=== PATIENT | male | born 1955 | race American Indian/Alaskan Native ===

== ENCOUNTER 2019-01-22 19:03 | Emergency (ER) | payer MEDICARE, OTHER, MEDICAID ==
[2019-01-22] MEDS ORDERED: TETANUS,DIPH,PERTUSS(ACELL) VACCINE 0.5 ML SYRINGE IM ONE (19:27)
--- NOTE | 2019-01-22 19:28 | Event Note ---
ED Screening Note Date of service: 01/22/19 Time: 19:23 ED Screening Note: This is a 63 y.o. M. that presents to the ER with puncture wounds to left hand. Patient states a dog bite to left hand while walking his dog. Patient states 4 his neighbor dogs attached his dog while walking and bit him and his brother. He can't remember last tetanus. This initial assessment/diagnostic orders/clinical plan/treatment(s) is/are subject to change based on patients health status, clinical progression and re- assessment by fellow clinical providers in the ED. Further treatment and workup at subsequent clinical providers discretion. Patient/guardian urged not to elope from the ED as their condition may be serious if not clinically assessed and managed. Initial orders include: Boostrix XR left hand
--- NOTE | 2019-01-22 20:19 | XRay Report ---
LEFT HAND 3 VIEWS INDICATION: puncture wound r/o fx. COMPARISON: No relevant prior imaging study available. FINDINGS: There is soft tissue injury at the base of the little finger. No acute fracture or dislocation is see n. No foreign bodies. Dorsal subcutaneous edema is extensive. IMPRESSION: 1. No acute fracture. 2. There is extensive dorsal subcutaneous edema. Signer Name: Jesse Ortega MD Signed: 01/22/2019 8:15 PM Workstation Name: [id number]
[2019-01-22] MEDS ORDERED: AMOXICILLIN/K CLAV 875/125MG TAB PO ONE (20:35)
[2019-01-22] MEDS ORDERED: HYDROcodone/ACETAMINOPHEN 5-325 MG TAB PO ONE ×2 (20:35→21:05)
--- NOTE | 2019-01-22 20:44 | Emergency Department Report ---
ED Animal Bite HPI - General Chief Complaint: Animal Bite Stated Complaint: LFT HAND DOG BITE/PAIN Time Seen by Provider: 01/22/19 19:23 Source: patient Mode of arrival: Ambulatory Limitations: No Limitations - History of Present Illness Initial Comments: Mr. Raygoza is a 63 y.o. M. that presents to the ER with puncture wounds to left hand. Patient states a dog bite to left hand while walking his dog. Patient states 4 of his neighbor dogs attached his dog while walking and bit him and his brother. Animal control did respond. rabies status unkown for dogs, animal control to follow up with patient, pt complains of 7/10 pain left hand, described as aching. There is no numbness , bleeding is controlled to puncture wounds x 2 to dorsal left hand. There is moderate posterior swelling. Pt can't remember last tetanus. Complaint: animal bite Onset/Timin -: hour(s) Left: Hand Animal Control Notified: Yes Description: household pet Mechanism: bite Pain Description: sharp Severity scale (0 -10): 7 Context: animals fighting Associated Symptoms: bleeding, other (swelling ) Treatments Prior to Arrival: wound dressing(s), pressure - Related Data Patient Tetanus UTD: No Previous Rx's Medication Instructions Recorded Last Taken Type Amoxicillin/Potassium Clav 1 each PO BID 10 Days #20 tablet 01/22/19 Unknown Rx [Augmentin 875-125 Tablet] traMADol [Ultram] 50 mg PO Q6HR PRN #12 tablet 01/22/19 Unknown Rx ED Review of Systems ROS: Stated complaint: LFT HAND DOG BITE/PAIN Other details as noted in HPI Constitutional: denies: chills, fever Eyes: denies: eye pain, eye discharge, vision change ENT: denies: ear pain, throat pain Respiratory: denies: cough, shortness of breath, wheezing Cardiovascular: denies: chest pain, palpitations Endocrine: no symptoms reported Gastrointestinal: denies: abdominal pain, nausea, diarrhea Genitourinary: denies: urgency, dysuria Musculoskeletal: other (puncture wound left dorsal hand ) Skin: other (puncture wound as above ). denies: rash, lesions Neurological: denies: headache, weakness, paresthesias Psychiatric: denies: anxiety, depression Hematological/Lymphatic: denies: easy bleeding, easy bruising ED Past Medical Hx - Past Medical History Previous Medical History?: No - Surgical History Past Surgical History?: No Additional Surgical History: tonsilectomy - Social History Smoking Status: Unknown if ever smoked Substance Use Type: Alcohol - Medications Home Medications: Home Medications Medication Instructions Recorded Confirmed Last Taken Type Amoxicillin/Potassium Clav 1 each PO BID 10 Days #20 tablet 01/22/19 Unknown Rx [Augmentin 875-125 Tablet] traMADol [Ultram] 50 mg PO Q6HR PRN #12 tablet 01/22/19 Unknown Rx ED Physical Exam - General Limitations: No Limitations General appearance: alert, in no apparent distress - Head Head exam: Present: atraumatic, normocephalic - Eye Eye exam: Present: normal appearance Pupils: Present: normal accommodation - ENT ENT exam: Present: mucous membranes moist - Neck Neck exam: Present: normal inspection, full ROM - Respiratory Respiratory exam: Present: normal lung sounds bilaterally. Absent: respiratory distress - Cardiovascular Cardiovascular Exam: Present: regular rate, normal rhythm, normal heart sounds. Absent: systolic murmur, diastolic murmur, rubs, gallop - GI/Abdominal GI/Abdominal exam: Present: soft, normal bowel sounds - Rectal Rectal exam: Present: deferred - Extremities Exam Extremities exam: Present: normal inspection, full ROM, tenderness (left dorsal hand ), normal capillary refill - Expanded Upper Extremity Exam Left Hand Wrist exam: Present: full ROM, tenderness, swelling, other (puncture wound x 2 ). Absent: abrasion, laceration, ecchymosis, deformity, crepidus, dislocation, erythema, amputation, nail avulsion, subungual hematoma Hand L/R Back: 1 - puncture wounds x 2 no bleeding moderate swelling Neuro motor exam: Present: wrist extension intact, thumb opposition intact, thumb IP flexion intact, thumb adduction intact, fingers 2-5 abduction intact Neurosensory exam: Present: radial nerve intact, ulnar nerve intact, median ne rve intact Vascular: Present: normal capillary refill, radial pulse - Back Exam Back exam: Present: normal inspection, full ROM. Absent: tenderness - Neurological Exam Neurological exam: Present: alert, oriented X3 - Psychiatric Psychiatric exam: Present: normal affect, normal mood ED Course Vital Signs 01/22/19 01/22/19 19:18 19:35 Temperature 97.9 F Pulse Rate 78 70 Respiratory 18 Rate Blood Pressure 159/103 Blood Pressure 146/91 [Right] O2 Sat by Pulse 92 Oximetry - Reevaluation(s) Reevaluation #1: Findings [facility] [address] [place] [address] XRay Report Signed Patient: GOGO RAYGOZA MR#: [id number] : 1955 Acct:[id number] Age/Sex: 63 / M ADM Date: 01/22/19 Loc: ED Attending Dr: Ordering Physician: BUBBA HUNTER Date of Service: 01/22/19 Procedure(s): XR hand 3+V LT Accession Number(s): [id number] cc: BUBBA HUNTER Fluoro Time In Minutes: LEFT HAND 3 VIEWS INDICATION: puncture wound r/o fx. COMPARISON: No relevant prior imaging study available. FINDINGS: There is soft tissue injury at the base of the little finger. No acute fracture or dislocation is seen. No foreign bodies. Dorsal subcutaneous edema is extensive. IMPRESSION: 1. No acute fracture. 2. There is extensive dorsal subcutaneous edema. Signer Name: Jesse Ortega MD Signed: 01/22/2019 8:15 PM Workstation Name: [id number] Transcribed By: Dictated By: Jesse Ortega MD Electronically Authenticated By: Jesse Ortega MD Signed Date/Time: 01/22/192014 DD/ 13 TD/TT: 01/22/19 20:51 Wond care: washed with copious soap and water at sink in room, cleaned with betadine solution, pt will recieve rabies immunoglobulin, and immunization,and tetanus , Augmentin, Pain control. Will follow up with health department and pcp with in 2-3 days for wound check, will return to ed if symptoms worsen. Reevaluation #2: wounds injected with rabies immunoglobulin patient received rabies vaccine and tetanus. Sterile dressing applied, patient given wound care instructions including rabies series, will follow up with pcp in 2 and or health department for series completion, distal pulses remain +2, machine puller < 3 sec, rom intact, pt will dc'd to home in stable conditions at this time. 01/22/19 21:42 Critical care attestation.: If time is entered above; I have spent that time in minutes in the direct care of this critically ill patient, excluding procedure time. ED Disposition Clinical Impression: Dog bite, hand Qualifiers: Encounter type: initial encounter Laterality: left Qualified Code(s): S61.452A - Open bite of left hand, initial encounter; W54.0XXA - Bitten by dog, initial encounter Disposition: TO HOME OR SELFCARE Is pt being admited?: No Does the pt Need Aspirin: No Condition: Stable Instructions: Animal Bite (ED), Rabies Vaccine (Injection), Rabies Immune Globulin (Injection) Additional Instructions: follow up in 2 days with pcp or health department for wound check and completion of rabies vaccinations, return to ed if symptoms worsen. Wound care as directed , soap and water, change dressing. Prescriptions: Amoxicillin/Potassium Clav [Augmentin 875-125 Tablet] 1 each PO BID 10 Days #20 tablet traMADol [Ultram] 50 mg PO Q6HR PRN #12 tablet PRN Reason: Pain [facility]errals: [facility] [Other] - 3-5 Days Forms: Work/School Release Form(ED) Time of Disposition: 21:48
[2019-01-22] MEDS ORDERED: RABIES IMMUNE GLOBULIN P/F 300 UNIT/ML INJ 5 ML IM ONE (21:00)
[2019-01-22] MEDS ORDERED: RABIES VACCINE (PCEC)/PF 2.5 UNIT/ML KIT IM ONE (21:00)
[2019-01-22 22:02] VITALS: BP 142/89
== END 2019-01-22 22:03 | disposition home or self-care (01) ==
LOC: ED 19:03
DX: S61.432A Puncture wound without foreign body of left hand, initial encounter (principal); Z90.89 Acquired absence of other organs; Z79.899 Other long term (current) drug therapy; W54.0XXA Bitten by dog, initial encounter; Y93.89 Activity, other specified; Y92.89 Other specified places as the place of occurrence of the external cause; Y99.8 Other external cause status
CPT/HCPCS: 90375; 90471; 90472; 90675; 90715; 96372

== ENCOUNTER 2019-01-25 13:07 | Emergency (ER) | payer MEDICARE ==
[2019-01-25 14:27] VITALS: BP 127/90
--- NOTE | 2019-01-25 14:30 | Event Note ---
ED Screening Note ED Screening Note: This initial assessment/diagnostic orders/clinical plan/treatment(s) is/are subject to change based on patients health status, clinical progression and re- assessment by fellow clinical providers in the ED. Further treatment and workup at subsequent clinical providers discretion. Patient/guardian urged not to elope from the ED as their condition may be serious if not clinically assessed and managed. Initial orders include: 63 yo BM states that he was bitten by a dog 4 days ago on his L hand. He states that he was seen after given a tetanus and rabies shot. He states that he is here today for the second rabies shot in the series. <CORRY BILL - Last Filed: 01/25/19 14:29> ED Screening Note: This initial assessment/diagnostic orders/clinical plan/treatment(s) is/are subject to change based on patients health status, clinical progression and re-assessment by fellow clinical providers in the ED. Further treatment and workup at subsequent clinical providers discretion. Patient/guardian urged not to elope from the ED as their condition may be serious if not clinically assessed and managed. Initial orders include: This patient presents for the second rabies vaccinations. we are unable to provide this vaccination and also subsequent vaccinations need to go through the health department. A screening examination has been completed and the patient does not appear to have any emergent medical condition at this time and can follow up outpatient. Vital signs stable. <CISCO WHEATLEY - Last Filed: 01/25/19 15:38>
[2019-01-25] MEDS ORDERED: RABAVERT RABIES VACCINE(PCEC) IM ONE (15:30)
== END 2019-01-25 15:48 | disposition home or self-care (01) ==
LOC: ED 13:07
DX: R51 Headache (principal); Z53.21 Procedure and treatment not carried out due to patient leaving prior to being seen by health care provider
CPT/HCPCS: 90675

== ENCOUNTER 2019-01-26 07:18 | Emergency (ER) | payer MEDICARE ==
[2019-01-26 07:26] VITALS: BP 113/74
[2019-01-26] MEDS ORDERED: TORADOL IM ONE (07:52)
[2019-01-26] MEDS ORDERED: DELTASONE PO ONE (07:52)
--- NOTE | 2019-01-26 08:00 | XRay Report ---
RIGHT KNEE, 3 VIEWS 01/26/2019 INDICATION / CLINICAL INFORMATION: trauma, pain, swelling. COMPARISON: None available. FINDINGS: No skeletal abnormality. A large joint effusion is identified. Signer Name: Rohan Timmons MD Signed: 01/26/2019 7:56 AM Workstation Name: [id number]
--- NOTE | 2019-01-26 08:06 | Emergency Department Report ---
ED Extremity Problem HPI - General Chief complaint: Extremity Injury, Lower Stated complaint: DOG BITE Time Seen by Provider: 01/26/19 07:45 Source: patient Mode of arrival: Ambulatory Limitations: No Limitations - History of Present Illness Initial comments: This 63-year-old male returns to the ED after being evaluated for dog bite yesterday presents with sudden onset of right knee swelling and pain this morning. Patient denies any fall or trauma in the past 2 days but states that while he was being attacked by the dog 4 days ago he may have hit in the without knowing. He denies any history of gout, fever. MD Complaint: extremity pain (right knee), extremity swelling -: Sudden Location: right, knee History of Same: No -: Yes arthralgia Radiation: none Severity scale (0 -10): 6 Quality: aching Improves with: immobilization Worsens with: weight bearing Associated Symptoms: denies other symptoms - Related Data Previous Rx's Medication Instructions Recorded Last Taken Type Amoxicillin/Potassium Clav 1 each PO BID 10 Days #20 tablet 01/22/19 Unknown Rx [Augmentin 875-125 Tablet] traMADol [Ultram] 50 mg PO Q6HR PRN #12 tablet 01/22/19 Unknown Rx Colchicine 0.6 mg PO DAILY #10 capsule 01/26/[address]] 75 mg PO BID #30 tablet 01/26/19 Unknown Rx predniSONE [Deltasone] 20 mg PO QDAY #6 tab 01/26/19 Unknown Rx Allergies Allergy/AdvReac Type Severity Reaction Status Date / Time No Known Allergies Allergy Verified 01/25/19 14:26 ED Review of Systems ROS: Stated complaint: DOG BITE Other details as noted in HPI Comment: All other systems reviewed and negative ED Past Medical Hx - Past Medical History Previous Medical History?: No - Surgical History Past Surgical History?: Yes Additional Surgical History: tonsilectomy - Social History Smoking Status: Never Smoker Substance Use Type: None - Medications Home Medications: Home Medications Medication Instructions Recorded Confirmed Last Taken Type Amoxicillin/Potassium Clav 1 each PO BID 10 Days #20 tablet 01/22/19 Unknown Rx [Augmentin 875-125 Tablet] traMADol [Ultram] 50 mg PO Q6HR PRN #12 tablet 01/22/19 Unknown Rx Colchicine 0.6 mg PO DAILY #10 capsule 01/26/19 Unknown Rx Diclofenac [Mookie Jackson] 75 mg PO BID #30 tablet 01/26/19 Unknown Rx predniSONE [Deltasone] 20 mg PO QDAY #6 tab 01/26/19 Unknown Rx ED Physical Exam - General Limitations: No Limitations General appearance: alert, in no apparent distress - Head Head exam: Present: atraumatic, normocephalic - Eye Eye exam: Present: normal appearance - ENT ENT exam: Present: mucous membranes moist - Neck Neck exam: Present: normal inspection - Respiratory Respiratory exam: Present: normal lung sounds bilaterally. Absent: respiratory distress - Cardiovascular Cardiovascular Exam: Present: regular rate, normal rhythm. Absent: systolic murmur, diastolic murmur, rubs, gallop - GI/Abdominal GI/Abdominal exam: Present: soft, normal bowel sounds - Rectal Rectal exam: Present: deferred - Extremities Exam Extremities exam: Present: normal inspection, full ROM, tenderness (palpation of the knee anteriorly), joint swelling (moderate swelling of the right knee anterior aspect.), other (the right knee is mildly warm to touch, pain with flexion and extension). Absent: calf tenderness - Expanded Lower Extremity Exam Right Hip exam: Present: full ROM Upper Leg exam: Present: full ROM Knee exam: Present: tenderness, swelling. Absent: abrasion, laceration, deformity, dislocation, erythema Lower Leg exam: Present: full ROM. Absent: tenderness, swelling Ankle exam: Present: full ROM. Absent: tenderness, swelling Foot/Toe exam: Present: normal inspection, full ROM. Absent: tenderness, swelling, abrasion - Back Exam Back exam: Present: normal inspection - Neurological Exam Neurological exam: Present: alert, oriented X3, normal gait (with a limp when applied pressure to the right) - Psychiatric Psychiatric exam: Present: normal affect, normal mood - Skin Skin exam: Present: warm, dry, intact, normal color. Absent: rash ED Course Vital Signs 01/26/19 07:21 Temperature 97.3 F L Pulse Rate 61 Respiratory 16 Rate Blood Pressure 113/74 O2 Sat by Pulse 100 Oximetry ED Medical Decision Making - Radiology Data Radiology results: report reviewed, image reviewed RIGHT KNEE, 3 VIEWS 01/26/2019 INDICATION / CLINICAL INFORMATION: trauma, pain, swelling. COMPARISON: None available. FINDINGS: No skeletal abnormality. A large joint effusion is identified. Signer Name: Rohan Timmons MD Signed: 01/26/2019 7:56 AM Workstation Name: [id number] Transcribed By: SLIME Dictated By: Rohan Timmons MD Electronically Authenticated By: Rohan Timmons MD Signed Date/Time: 01/26/19 0756 - Medical Decision Making 63-year-old male presents to ED with right knee joint effusion and pain ED course: Patient received Toradol and prednisone in ED. Stress of the knee obtained. X-ray shows, see reported above Discussed x-ray findings with the patient and discussed the patient is swelling does not go down in the knee joint to follow-up with orthopedic Dr. Gomez in 2- 3 days. Discussed the patient to apply heat versus ice compressions to me to reduce swelling Vital signs are normal patient is in no acute distress Discussed with patient follow-up with primary care physician. Discussed the patient and take medications as prescribed. Patient has no neurological deficit. Patient is alert and oriented 3 and understands all instructions given. - Differential Diagnosis arthralgia, gouty arthritis, knee joint effusion, tendinitis Critical care attestation.: If time is entered above; I have spent that time in minutes in the direct care of this critically ill patient, excluding procedure time. ED Disposition Clinical Impression: Knee pain, right, Knee effusion, right Disposition: DC-01 TO HOME OR SELFCARE Is pt being admited?: No Does the pt Need Aspirin: No Condition: Stable Instructions: Knee Effusion (ED), Knee Pain (ED), Knee Exercises (GEN) Additional Instructions: Make sure to follow up with the primary care physician as discussed. Take all your medications as you've been prescribed. If you have any worsening symptoms or develop new symptoms please return to ED immediately. Prescriptions: Colchicine 0.6 mg PO DAILY #10 capsule predniSONE [Deltasone] 20 mg PO QDAY #[address] [Voltaren ] 75 mg PO BID #30 tablet Referrals: PRIMARY CAREMD [Primary Care Provider] - 3-5 Days LOREN GOMEZ MD [Staff Physician] - 3-5 Days Forms: Work/School Release Form Time of Disposition: 08:23
== END 2019-01-26 08:59 | disposition home or self-care (01) ==
LOC: ED 07:18
DX: M25.461 Effusion, right knee (principal); Z79.899 Other long term (current) drug therapy; Z90.89 Acquired absence of other organs
CPT/HCPCS: 73562; 96372; 99283; J1885; J7512